=== PATIENT | female | born 1965 | race Caucasian/White ===

== ENCOUNTER 2017-10-12 11:43 | Day surgery (SDC) | payer MEDICARE, OTHER ==
[2017-10-12] MEDS ORDERED: PROPOFOL 40 ML (12:58)
[2017-10-12] MEDS ORDERED: FENTAnyl 50 MCG/ML VIAL (12:58)
[2017-10-12] MEDS ORDERED: LIDOCAINE 100 MG SYRINGE (12:58)
== END 2017-10-12 16:05 | disposition home or self-care (01) ==
LOC: GIL 11:43
DX: K21.9 Gastro-esophageal reflux disease without esophagitis (principal); K29.70 Gastritis, unspecified, without bleeding; I10 Essential (primary) hypertension; E11.9 Type 2 diabetes mellitus without complications; E66.01 Morbid (severe) obesity due to excess calories; Z68.41 Body mass index [BMI] 40.0-44.9, adult
CPT/HCPCS: 43239; 82962; 88305; 88312